=== PATIENT | female | born 1985 | race African-American/Black ===

== ENCOUNTER 2016-10-05 16:26 | Emergency (ER) | payer MEDICAID ==
[~2016-10-05] VITALS: Ht 157.5 cm; Wt 82.0 kg
[2016-10-05] MEDS ORDERED: PREDNISONE 20MG TABLET PO STA (17:49)
[2016-10-05] MEDS ORDERED: ALBUTEROL (0.083%) 2.5MG/3ML NEB HHN STA (17:49)
[2016-10-05] MEDS ORDERED: IPRATROPIUM BROMIDE (0.02%) 0.5MG/2.5ML NEB HHN STA (17:49)
[2016-10-05 19:20] VITALS: BP 116/86
== END 2016-10-05 19:22 | disposition home or self-care (01) ==
LOC: ER 18:24
DX: J45.901 Unspecified asthma with (acute) exacerbation (principal); F17.200 Nicotine dependence, unspecified, uncomplicated
CPT/HCPCS: 71010; 81025; 93005; 94640; 99284; J7512; J7611; Z7610